=== PATIENT | female | born 1990 | race Caucasian/White ===

== ENCOUNTER 2018-03-06 15:20 | Emergency (ER) | payer SELFPAY ==
[~2018-03-06] VITALS: Ht 152.4 cm; Wt 52.2 kg
[~2018-03-06 15:20] MED LIST: 'PARAFON FORTE500 M1 PO; BENADRYL25 M2 PO; LORAZEPAM1 MG PO; MACROBID100 M1 PO; NAPROSYN500 MG PO; PHENERGAN25 M3 PO; PREDNISONE10 MG PO; PYRIDIUM200 M1 PO; VENLAFAXINE HY150 M2 PO
[2018-03-06 15:55] LABS: BILIRUBIN 2+ (NEGATIVE); CLARITY TURBID (CLEAR); COLOR RED (YELLOW); GLUCOSE NEGATIVE (NEGATIVE); KETONE 3+ (NEGATIVE)
[2018-03-06 15:56] LABS: BLOOD 3+ (NEGATIVE); LEUKO ESTERASE 1+ (NEGATIVE); NITRITE POSITIVE (NEGATIVE); UROBILINOGEN 0.2 E.U./dl (0.2-1.0)
[2018-03-06 15:58] LABS: RBC TNTC rbc/hpf (0-2)
[2018-03-06] MEDS ORDERED: SEPTDS PO (16:39)
== END 2018-03-06 16:55 | disposition home or self-care (01) ==
LOC: ED 15:20
PROVIDERS: Physician Assistant
DX: N39.0 Urinary tract infection, site not specified (principal); Z88.1 Allergy status to other antibiotic agents; Z88.8 Allergy status to other drugs, medicaments and biological substances; Z88.6 Allergy status to analgesic agent